=== PATIENT | female | born 1985 | race Caucasian/White ===

== ENCOUNTER 2017-05-13 01:51 | Emergency (ER) | payer OTHER ==
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
[2017-05-13 02:05] VITALS: BP 133/112; PULSE 84; RESP 16; TEMP 97.9; O2SAT 96
== END 2017-05-13 02:00 | disposition home or self-care (01) ==
DX: S09.90XA Unspecified injury of head, initial encounter (principal); S00.81XA Abrasion of other part of head, initial encounter; T71.191A Asphyxiation due to mechanical threat to breathing due to other causes, accidental, initial encounter; Y09 Assault by unspecified means; Y92.238 Other place in hospital as the place of occurrence of the external cause; Y99.0 Civilian activity done for income or pay; Y93.89 Activity, other specified

== ENCOUNTER → 2017-06-10 | Outpatient (CLI) | payer OTHER | LOC: CIMAGING 11:42 | PROVIDERS: ATTEND Physical Medicine & Rehabilitation | DX: M54.2 Cervicalgia (principal) | CPT/HCPCS: 72050-PO ==